=== PATIENT | female | born 1985 | race Two or more races ===

== ENCOUNTER 2022-08-17 18:20 | Emergency (ER) | payer MEDICAID, OTHER ==
[~2022-08-17] VITALS: Ht 154.9 cm; Wt 82.6 kg
[2022-08-17] MEDS ORDERED: IBUP800T27 PO (21:07)
[2022-08-17] MEDS ORDERED: CYCL-837 PO (21:07)
[2022-08-17 22:36] VITALS: BP 120/62
== END 2022-08-17 23:25 | disposition home or self-care (01) ==
LOC: ER 18:25
DX: S16.1XXA Strain of muscle, fascia and tendon at neck level, initial encounter (principal); S39.012A Strain of muscle, fascia and tendon of lower back, initial encounter; S46.912A Strain of unspecified muscle, fascia and tendon at shoulder and upper arm level, left arm, initial encounter; Z79.1 Long term (current) use of non-steroidal anti-inflammatories (NSAID); Z79.899 Other long term (current) drug therapy; V49.49XA Driver injured in collision with other motor vehicles in traffic accident, initial encounter; Y93.89 Activity, other specified; Y92.410 Unspecified street and highway as the place of occurrence of the external cause; Y99.8 Other external cause status
CPT/HCPCS: 72100; 72125